=== PATIENT | female | born 2000 | race Two or more races ===

== ENCOUNTER 2019-03-05 19:38 | Observation (INO) | payer OTHER ==
[~2019-03-05] VITALS: Ht 154.9 cm; Wt 56.2 kg
[2019-03-05] MEDS ORDERED: LACTATED RINGER'S 1,000 ML IV ONE (20:55)
[2019-03-05] MEDS ORDERED: TERBUTALINE SULFATE 1 MG/ML 1ML VIAL SC SCH (21:00)
== END 2019-03-05 22:38 | disposition home or self-care (01) | DRG 832 ==
LOC: LDRP 19:38
PROVIDERS: ADMIT Obstetrics & Gynecology; ATTEND Obstetrics & Gynecology
DX: O60.03 Preterm labor without delivery, third trimester (principal); O99.323 Drug use complicating pregnancy, third trimester; O26.893 Other specified pregnancy related conditions, third trimester; H53.8 Other visual disturbances; F12.90 Cannabis use, unspecified, uncomplicated; Z3A.32 32 weeks gestation of pregnancy; Z87.891 Personal history of nicotine dependence
CPT/HCPCS: 59025; 81002; 96372; G0378; J3105; 96365

== ENCOUNTER 2019-06-27 13:09 | Emergency (ER) | payer OTHER ==
[~2019-06-27] VITALS: Ht 152.4 cm; Wt 57.2 kg
[2019-06-27 13:25] VITALS: BP 104/60
== END 2019-06-27 17:57 | disposition left against medical advice (07) ==
LOC: ER 13:13
DX: M79.675 Pain in left toe(s) (principal); Z53.21 Procedure and treatment not carried out due to patient leaving prior to being seen by health care provider
CPT/HCPCS: 73630